=== PATIENT | female | born 1990 ===

== ENCOUNTER 2021-02-27 07:55 | Day surgery (SDC) | payer OTHER ==
--- NOTE | 2021-02-26 18:14 | Short Stay Summary ---
Short Stay Documentation Date of service: 02/26/21 Narrative H&P: 31-year-old -0-1-3 with undesired fertility. The patient is aware of other contraceptive options and has elected to undergo definitive surgical management. Patient has been reassessed/reevaluated/re-examined. H&P has been reviewed. No interval changes. - History Principal diagnosis: Unwanted fertility Past Medical History: No medical history Past Surgical History: No surgical history Social history: - Allergies and Medications Current Medications: Allergies shrimp Allergy (Verified 02/21/21 15:18) Itching, swelling Home Medications Medication Instructions Recorded Confirmed Last Taken Type Lisinopril/Hydrochlorothiazide 1 each PO DAILY 02/21/21 02/21/21 Unknown History [Zestoretic 10-12.5 mg Tablet] - Physical exam General appearance: no acute distress Integumentary: no rash HEENT: Atraumatic Lungs: Clear to auscultation Breasts: deferred Heart: Regular rate Gastrointestinal: normal Female Genitourinary: deferred Rectal Exam: deferred - Brief post op/procedure progress note Date of procedure: 02/27/21 Pre-op diagnosis: Unwanted fertility Post-op diagnosis: same Procedure: Laparoscopy Bilateral salpingectomy Anesthesia: GETA Surgeon: KELLIE WATTERS Estimated blood loss: minimal Pathology: list (Bilateral fallopian tubes) Specimen disposition: to lab Condition: stable - Hospital course Hospital course: The patient was admitted the day of surgery underwent a laparoscopic bilateral salpingectomy. Please see operative note for details of surgery. Her postoperative course was uneventful. - Disposition Condition at discharge: Good Disposition: 01 HOME / SELF CARE / HOMELESS Short Stay Discharge Plan Activity: other (Pelvic rest for 1 week) Diet: regular Additional Instructions: Follow-up is not required Follow-up as needed Prescriptions: Ibuprofen [Motrin] 800 mg PO Q8HR PRN #30 tablet PRN Reason: Pain , Severe (7-10) HYDROcodone/APAP 5-325 [Blackstone 5/325] 1 each PO Q6HR PRN #15 tablet PRN Reason: Pain
[~2021-02-27 07:55] MED LIST: BUPIVACAINE/PF (0.5%) 5 MG/1 ML 30 ML VIAL INFILTRATI ONE; SODIUM CHLORIDE 0.9% IRR 1,500 ML BOTTLE IR ONE
[2021-02-27] MEDS ORDERED: LACTATED RINGERS 1,000 ML ONE ×2 (08:28→12:34)
[2021-02-27] MEDS ORDERED: ACETAMINOPHEN 500 MG TAB PO NR (08:50)
[2021-02-27] MEDS ORDERED: HYDROmorphone 1 MG/1 ML INJ IV PRN ×2 (08:50)
[2021-02-27] MEDS ORDERED: MAGNESIUM OXIDE 400 MG TAB PO NR (08:50)
--- NOTE | 2021-02-27 08:55 | Anesthesia Day of Surgery ---
Anesthesia Day of Surgery - Day of Surgery Patient Examined: Yes Patient H&P Reviewed: Yes Patient is NPO: Yes
--- NOTE | 2021-02-27 08:56 | Anesthesia Consultation ---
Anesthesia Consult and Med Hx Date of service: 02/27/21 - Airway Anesthetic Teeth Evaluation: Good ROM Head & Neck: Adequate Mental/Hyoid Distance: Adequate Mallampati Class: Class II Intubation Access Assessment: Good - Pre-Operative Health Status ASA Pre-Surgery Classification: ASA3 Proposed Anesthetic Plan: General - Pulmonary Hx Smoking: No Hx Asthma: No Hx Sleep Apnea: No - Cardiovascular System Hx Hypertension: Yes (Pt planning on gastric sleeve. Had cardiac eval and reports it negative) - Central Nervous System Hx Seizures: No Hx Psychiatric Problems: No - Endocrine Hx Renal Disease: No Hx Non-Insulin Dependent Diabetes: No Hx Hypothyroidism: No Hx Hyperthyroidism: No - Hematic Hx Anemia: No Hx Sickle Cell Disease: No - Other Systems Hx Alcohol Use: No Hx Obesity: Yes
[2021-02-27] MEDS ORDERED: CELECOXIB 200 MG CAP PO NR (09:00)
[2021-02-27] MEDS ORDERED: MIDAZOLAM 2 MG/2 ML INJ IV NR (09:00)
[2021-02-27] MEDS ORDERED: ONDANSETRON 4 MG/2 ML INJ IV PRN (09:00)
[2021-02-27] MEDS ORDERED: LACTATED RINGERS 1,000 ML IV SCH (09:00)
[2021-02-27] MEDS ORDERED: GABAPENTIN 300 MG CAP PO NR (09:00)
[2021-02-27] MEDS ORDERED: MAGNESIUM OXIDE 400 MG TAB PO ONE (09:08)
[2021-02-27 09:13] LABS: Hemoglobin 12.8 gm/dl (10.1-14.3); Mean Corpuscular HGB Conc 32 % (30-34); Mean Corpuscular Volume 81 fl (79-97); Platelet Count 210 K/mm3 (140-440); Red Blood Count 4.94 M/mm3 (3.65-5.03); Red Cell Distribution Width 15.2 % (13.2-15.2)
[2021-02-27 09:22] LABS: Blood Urea Nitrogen 11 mg/dL (7-17); Calcium 8.6 mg/dL (8.4-10.2); Hemolysis Index 37
[2021-02-27 09:23] LABS: BUN/Creatinine Ratio 22
[2021-02-27] MEDS ORDERED: BUPIVACAINE/PF (0.5%) 5 MG/1 ML 30 ML VIAL INFILTRATI ONE ×2 (11:18→12:27)
[2021-02-27] MEDS ORDERED: ROCURONIUM 50 MG/5 ML INJ IV ONE (11:27)
[2021-02-27] MEDS ORDERED: LIDOCAINE MPF (2%) 20 MG/1 ML VIAL 5 ML ONE (11:27)
[2021-02-27] MEDS ORDERED: propofoL 200 MG/20 ML VIAL IV ONE (11:27)
[2021-02-27] MEDS ORDERED: HYDROmorphone 1 MG/1 ML INJ ONE (11:29)
[2021-02-27] MEDS ORDERED: ONDANSETRON 4 MG/2 ML INJ ONE (12:27)
[2021-02-27] MEDS ORDERED: dexAMETHasone 20 MG/5 ML VIAL ONE (12:27)
[2021-02-27] MEDS ORDERED: KETOROLAC 30 MG/1 ML INJ ONE (12:27)
[2021-02-27] MEDS ORDERED: NEOSTIGMINE 10MG/10 ML INJ MDV ONE (12:27)
[2021-02-27] MEDS ORDERED: GLYCOPYRROLATE 0.4 MG/2 ML INJ ONE ×2 (12:27)
[2021-02-27] MEDS ORDERED: SODIUM CHLORIDE 0.9% IRR 1,500 ML BOTTLE IR ONE (12:28)
--- NOTE | 2021-02-27 12:33 | Operative Report ---
Operative Report Operative Report: Date of surgery: February 27, 2021 Preoperative diagnosis: Unwanted fertility Postoperative diagnosis: Same as above Procedure: Laparoscopy; Bilateral salpingectomy Surgeon: Consuelo Rashid M.D. Anesthesia: General endotracheal anesthesia Estimated blood loss: Minimal Pathology: Bilateral fallopian tubes Findings: Normal uterus tubes and ovaries Indication: 31-year-old -0-1-3 with unwanted fertility. Procedure: The patient was taken to the operating room and given general endotracheal anesthesia without complication. The patient is prepped and draped in a normal sterile fashion. A bivalve speculum was placed in the patient's vagina and a single-tooth tenaculum was placed on the anterior lip of the cervix .A uterine acorn manipulator was placed, and the bivalve speculum was then removed. Attention was then turned to the patient's abdomen where a 5 mm infraumbilical skin incision was then made. A Veress needle was placed and peritoneal entry was verified water-filled syringe. Insufflation of the peritoneal cavity was performed with CO2 gas. A 5 mm trocar was placed and the laparoscope was then inserted. The patient was then placed in Trendelenburg. A 7 mm suprapubic skin incision was then made. Under direct visualization a 7 mm trocar was then placed. An additional 5 mm left lateral trocar was also placed. General survey of the patient's abdomen revealed normal uterus tubes and ovaries. The fallopian tube was then followed out to the fimbriated end. The LigaSure device was used in order to coagulate and transect the mesosalpinx. The fallopian tube was excised from the adnexa. The fallopian tube was removed through the 7 mm trocar. This was performed on the contralateral side as well. The trocars were then removed. The pneumoperitoneum was then released. The 5 mm trocar laparoscope was then removed. The skin incisions were then closed with 4-0 Monocryl. The incisions were injected with quarter percent Marcaine. Dressings were applied to the incision. The vaginal instruments were then removed atraumatically. Then successfully extubated and taken to the recovery room. All sponge laps and needle counts were correct x2.
[2021-02-27 14:29] VITALS: BP 138/90
--- NOTE | 2021-02-27 17:33 | Post Anesthesia Evaluation ---
- Post Anesthesia Evaluation Patient Participated: Yes Airway Patent: Yes Stable Respiratory Function: Yes Nausea/Vomiting: No Temp > 96.8F: Yes Pain Manageable: Yes Adequeate Hydration: Yes Anesthesia Complications: No Block Receding Appropriately: Not Applicable Patient on Ventilator: No
== END 2021-02-27 14:10 | disposition home or self-care (01) ==
LOC: OR 07:55
PROVIDERS: ATTEND Obstetrics & Gynecology
DX: Z30.2 Encounter for sterilization (principal); Z64.0 Problems related to unwanted pregnancy; I10 Essential (primary) hypertension; E66.9 Obesity, unspecified; Z79.899 Other long term (current) drug therapy; Z98.890 Other specified postprocedural states; Z88.8 Allergy status to other drugs, medicaments and biological substances; Z82.49 Family history of ischemic heart disease and other diseases of the circulatory system
CPT/HCPCS: 36415; 58661; 80048; 84703; 85027; 88302; J1100; J1170; J1815; J1885; J2250; J2405; J2704; J2710; J3490; J7120